=== PATIENT | male | born 1975 | race Caucasian/White ===

== ENCOUNTER 2018-01-04 23:45 | Emergency (ER) | payer OTHER ==
[~2018-01-04 23:45] MED LIST: NALOXONE HCL 2 MG/2 ML VIAL ONE
--- OUTSIDE RECORDS SUMMARY | 2018-01-04 23:47 | XMS REPORT | Continuity of Care Document ---
:1975 Author Organization Interface Problems Problem Status Onset Classification Date Comments Source Date Reported GASTROPARESIS Active 08/07/[address] Anxiety Resolved Problem 08/30/2016 [facility] Constipation Resolved Problem 08/30/2016 [facility] Gastroparesis Resolved Problem 08/30/2016 [facility] GERD (<span Resolved Problem 08/30/2016 [facility] ID="[id number]" Medical >Confirmed</span> Center ) Opiate use Resolved Problem 08/30/2016 [facility] Obesity Active Problem 08/30/2016 [facility] Pain Active Problem 08/30/2016 [facility] Medications Medication Details Route Status Patient Ordering Order Source Instructions Provider Date Buprenorphine 4 1 ea, SL, Active [facility] MG / Naloxone 1 Daily, # 017 Medical [facility] Oral Strip 30 ea, 0 Center [Suboxone] Refill(s) Allergies, Adverse Reactions, Alerts Substance Category Reaction Severity Reaction Status Date Comments Source type Reported NKDA Assertion Drug Active [facility] Immunizations Immunization Date Given Site Status Last Updated Comments Source Results Order Results Value Reference Date Interpretation Comments Source Name Range Vital Signs Vital Sign Value Date Comments Source Weight 106.364 08/27/2016 [facility] BMI Calculated 31.8 08/27/2016 [facility] Height 182.88 cm 08/27/2016 [facility] Systolic (mm Hg) 100 08/27/2016 [facility] Diastolic (mm Hg) 66 08/27/2016 [facility] Respitory Rate 16 08/27/2016 [facility] Heart Rate 94 08/27/2016 [facility] Encounters Location Location Encounter Encounter Reason Attending ADM DC Status Source Details Type Number For Provider Date Date [facility] [id number] Lizbet 08/27 08/28 [facility] Alan Morrellhi /2016 [facility] Center Procedures Procedure Code Date Perfomer Comments Source Colonoscopy [id number] [facility] Endoscopy of GI [id number] [facility]
--- OUTSIDE RECORDS SUMMARY | 2018-01-04 23:47 | XMS REPORT | Summary of Care ---
:1975 Author Organization [facility] Address [address], [place] [address]- Encounter HQ Gerryr_henrry(FIN) [id number] Date(s): 08/27/16 - 08/27/16 [facility] [address] [facility] [address] [place] [address] [phone] Discharge Disposition: Home or Self Care Attending Physician: Lizbet Khan MD Referring Physician: Lizbet Khan MD Vital Signs Most recent to oldest [Reference Range]: 1 Height 182.88 cm (08/27/16 11:36 AM) Blood Pressure [90-140/60-90 mmHg] 100/66 mmHg (08/27/16 11:36 AM) Respiratory Rate [14-20 BRMIN] 16 BRMIN (08/27/16 11:36 AM) Peripheral Pulse Rate [60-100 bpm] 94 bpm (08/27/16 11:36 AM) Weight 106.364 kg (08/27/16 11:36 AM) Body Mass Index 31.8 m2 (08/27/16 11:36 AM) Problem List Condition Effective Dates Status Health Status Informant Anxiety(Confirmed) Resolved Constipation(Confirmed) Resolved Gastroparesis(Confirmed) Resolved GERD (gastroesophageal reflux Resolved disease)(Confirmed) Opiate use(Confirmed) Resolved Obesity(Confirmed) Active Pain(Confirmed) Active Allergies, Adverse Reactions, Alerts Substance Reaction Severity Status NKDA Active Medications Suboxone 4 mg-1 mg sublingual film 1 ea, SL, Daily, # 30 ea, 0 Refill(s) Start Date: 08/27/16 Status: Ordered Results No data available for this section Immunizations No data available for this section Procedures Procedure Date Related Diagnosis Body Site Colonoscopy Endoscopy of GI tract Social History Social History Type Response Alcohol Current, Type Beer. Frequency: 1-2 times per month. Smoking Status Current every day smoker; Type: Cigarettes; Ready to change: No ; Concerns about tobacco use in household: No; Exposure to Tobacco Smoke None; Cigarette Smoking Last 365 Days No; Reg Smoking Cessation Counseling No Assessment and Plan No data available for this section
[2018-01-05] MEDS ORDERED: D5 0.45 NS 1,000 ML IV ONE (00:30)
[2018-01-05 00:54] LABS: Absolute Lymphocytes (CBC) 2.2 K/uL (0.7-4.9); Absolute Monocytes 0.6 K/uL (0.1-1.3); Absolute Neutrophil 4.3 K/uL (1.8-8.0); Basophils % 0.6 % (0-1.3); Hematocrit 39.9 % (39.6-49.0); Lymphocytes % 30.3 % (15.3-44.8); MCH 33.2 pg (27.0-35.0); MCV 96.6 fL (80-100); MPV 9.3 fL (7.6-11.3); Monocytes % 8.8 % (3.3-12.3); RBC Red Blood Cell Count 4.13 M/uL (4.33-5.43)
[2018-01-05 00:56] LABS: Protime INR 0.98
[2018-01-05 01:17] LABS: ALT/SGPT 23 U/L (12-78); AST/SGOT 17 U/L (15-37); Albumin 3.3 g/dL (3.4-5.0); Alkaline Phosphatase 81 U/L (45-117); BUN Blood Urea Nitrogen 6 mg/dL (7-18); Bicarbonate 31 mmol/L (21-32); Bilirubin Direct 0.1 mg/dL (0-0.2); Bilirubin Total 0.4 mg/dL (0.2-1.0); Glucose Level 97 mg/dL (74-106); Lipase 100 U/L (73-393); Potassium 3.4 mmol/L (3.5-5.1); Protein, Total 6.6 g/dL (6.4-8.2); Sodium Level 139 mmol/L (136-145)
[2018-01-05 01:57] LABS: Barbiturates NEGATIVE (NEGATIVE); Benzodiazepines POSITIVE (NEGATIVE); Cocaine NEGATIVE (NEGATIVE); METHAMPHETAM NEGATIVE (NEGATIVE); Methadone NEGATIVE (NEGATIVE); Opiates POSITIVE (NEGATIVE); Phencyclidine NEGATIVE (NEGATIVE); THC Cannibis POSITIVE (NEGATIVE)
[2018-01-05 02:04] LABS: Urine Blood NEGATIVE (NEG); Urine Glucose NEGATIVE (NEG); Urine Protein NEGATIVE (NEG); Urine Specific Gravity 1.015 (1.005-1.030)
--- NOTE | 2018-01-05 02:13 | EDPHYS ---
Physician Documentation [facility] Name: Waqar Bryant Age: 42 yrs Sex: Male : 1975 Arrival Date: 01/04/2018 Time: 23:51 Bed 24 Private MD: ED Physician Mike Welsh HPI: 01/05 00:09 This 42 yrs old Male presents to ER via EMS with complaints of AMS, abd pain. ma2 00:09 The patient presents with abdominal pain. The symptoms radiate to back. Associated ma2 signs and symptoms: Pertinent negatives: nausea and vomiting, blood in stools, diarrhea, fever, vomiting. The symptoms are described as constant. Modifying factors: the symptoms are aggravated by food. Severity of pain: At its worst the pain was moderate in the emergency department the pain is unchanged. hx of alcoholic pancreatitis has been having worsening of his abd pain during last 3 days, he took 4 of Somas and was bib ems with somnolence and AMS both parents at bedside, given narcan by EMS, GCS 15, AOx4, has moderate abd pain. no other symptosm . Historical: - Allergies: 00:05 No Known Allergies; mg2 - Home Meds: 00:05 suboxone [Active]; clonipine [Active]; Creon oral oral [Active]; mg2 - PMHx: 00:05 opiate addiction; Pancreatitis; mg2 - PSHx: 00:05 ercp; mg2 - Immunization history:: Flu vaccine status is unknown. - Social history:: Smoking status: Patient uses tobacco products, smokes one pack cigarettes per day. Patient/guardian denies using street drugs, IV drugs, Patient uses alcohol, on a daily basis. Patient/guardian denies using The patient lives with family. - Ebola Screening: : No symptoms or risks identified at this time. - Family history:: not pertinent. ROS: 00:09 Constitutional: Negative for fever, chills, and weight loss, : Negative for injury, ma2 bleeding, discharge, and swelling. 00:09 Abdomen/GI: Positive for abdominal pain, Negative for nausea and vomiting, vomiting, abdominal cramps, anorexia, rectal bleeding, acute changes. 00:09 All other systems are negative. Exam: 00:09 Constitutional: This is a well developed, well nourished patient who is awake, alert, ma2 and in no acute distress. Head/Face: Normocephalic, atraumatic. Chest/axilla: Normal chest wall appearance and motion. Nontender with no deformity. No lesions are appreciated. Cardiovascular: Regular rate and rhythm with a normal S1 and S2. No gallops, murmurs, or rubs. Normal PMI, no JVD. No pulse deficits. Respiratory: Lungs have equal breath sounds bilaterally, clear to auscultation and percussion. No rales, rhonchi or wheezes noted. No increased work of breathing, no retractions or nasal flaring. Abdomen/GI: Soft, non-tender, with normal bowel sounds. No distension or tympany. No guarding or rebound. No evidence of tenderness throughout. Vital Signs: 00:08 Pulse 70; Resp 18; Temp 98.4; Pulse Ox 98% on R/A; Weight 90.72 kg; Height 6 ft. 0 in. mg2 (182.88 cm); Pain 5/10; 01:06 BP 168 / 61; Pulse 61; Resp 18; Pulse Ox 100% on R/A; mg2 01:52 BP 169 / 68; Pulse 58; Resp 18; Pulse Ox 100% on R/A; mg2 02:24 BP 155 / 60; Pulse 60; Resp 18; Pulse Ox 100% on R/A; Pain 0/10; mg2 00:08 Body Mass Index 27.12 (90.72 kg, 182.88 cm) mg2 MDM: 01/04 23:57 Patient medically screened. nh2 01/05 00:09 Differential diagnosis: gastritis, gastroesophageal reflux disease, non-specific abd ma2 pain, pancreatitis. 02:09 Data reviewed: vital signs, nurses notes, lab test result(s). Counseling: I had a nh2 detailed discussion with the patient and/or guardian regarding: the historical points, exam findings, and any diagnostic results supporting the discharge/admit diagnosis, the presence of at least one elevated blood pressure reading (>120/80) during this emergency department visit. Response to treatment: the patient's symptoms have markedly improved after treatment. 01/05 00:06 Order name: Basic Metabolic Panel; Complete Time: 02:08 ma2 01/05 00:06 Order name: CBC with Diff; Complete Time: :07 ma2 01/05 00:06 Order name: Creatinine for Radiology; Complete Time: :01/05 00:06 Order name: Hepatic Function; Complete Time: 02:01/05 00:06 Order name: Lipase; Complete Time: 02:01/05 00:06 Order name: Acetaminophen; Complete Time: 02:01/05 00:06 Order name: ETOH Level; Complete Time: 02:01/05 00:06 Order name: PT-INR; Complete Time: 01:01/05 00:06 Order name: Ptt, Activated; Complete Time: 01:01/05 00:06 Order name: Salicylate; Complete Time: 02:01/05 00:06 Order name: Urine Drug Screen; Complete Time: 02:01/05 00:06 Order name: EKG; Complete Time: 00:08 01/05 00:59 Order name: Urine Dipstick--Ancillary (enter results); Complete Time: 02: 01/05 00:06 Order name: IV Saline Lock; Complete Time: 00:01/05 00:06 Order name: Labs collected and sent; Complete Time: 00:01/05 00:06 Order name: EKG - Nurse/Tech; Complete Time: 00:35 01/05 00:06 Order name: Urine Dipstick-Ancillary (obtain specimen); Complete Time: 01:07 Administered Medications: 00:35 Drug: D5-1/2 NS 1000 ml Route: IV; Rate: 100 ml/hr; Site: left antecubital; mg2 02:25 Follow up: Response: No adverse reaction; IV Status: Order to discontinue infusion mg2 Disposition: 01/05/18 02:12 Discharged to Home. Impression: Finding of opiate drug in blood. - Condition is Stable. - Medication Reconciliation Form, Thank You Letter, Antibiotic Education, Prescription Opioid Use form. - Follow up: Private Physician; When: Tomorrow; Reason: Continuance of care. - Problem is an acute exacerbation. - Symptoms have improved. Signatures: Dispatcher [employer] EDMS Mike Welsh MD MD nh2 Syed Cortés RN RN mg2 Corrections: (The following items were deleted from the chart) 02:12 01/05/2018 02:12 Discharged to Home. Impression: Finding of opiate drug in blood. mg2 Condition is Stable. Forms are Medication Reconciliation Form, Thank You Letter, Antibiotic Education, Prescription Opioid Use. Follow up: Private Physician; When: Tomorrow; Reason: Continuance of care. Problem is an acute exacerbation. Symptoms have improved. ma2
--- NOTE | 2018-01-05 02:13 | ER ---
Nurse's Notes [facility] Name: Waqar Bryant Age: 42 yrs Sex: Male : 1975 Arrival Date: 01/04/2018 Time: 23:51 Bed 24 Private MD: Diagnosis: Finding of opiate drug in blood Presentation: 01/05 00:00 Presenting complaint: EMS states: he had chronic pain/pancreatitis and his friend gave mg2 him soma pills and he took 5 of those \T\ 2000 tonight and he started shaking, incoherence, loss of balance. EMS gave him 4 mg of Narcan and he improved. no rashes, Shortness of breath. BGL was 101 mg/dl. Transition of care: patient was not received from another setting of care. Onset of symptoms was January 04, 2018. Risk Assessment: Do you want to hurt yourself or someone else? Patient reports no desire to harm self or others. Initial Sepsis Screen: Does the patient meet any 2 criteria? No. Patient's initial sepsis screen is negative. Does the patient have a suspected source of infection? No. Patient's initial sepsis screen is negative. Care prior to arrival: Medication(s) given: Narcan 4 mg and NSaline. 00:00 Method Of Arrival: EMS mg2 00:00 Acuity: AYANNA 3 mg2 Historical: - Allergies: 00:05 No Known Allergies; mg2 - Home Meds: 00:05 suboxone [Active]; clonipine [Active]; Creon oral oral [Active]; mg2 - PMHx: 00:05 opiate addiction; Pancreatitis; mg2 - PSHx: 00:05 ercp; mg2 - Immunization history:: Flu vaccine status is unknown. - Social history:: Smoking status: Patient uses tobacco products, smokes one pack cigarettes per day. Patient/guardian denies using street drugs, IV drugs, Patient uses alcohol, on a daily basis. Patient/guardian denies using The patient lives with family. - Ebola Screening: : No symptoms or risks identified at this time. - Family history:: not pertinent. Screenin:05 Abuse screen: Denies threats or abuse. Denies injuries from another. Nutritional mg2 screening: No deficits noted. Nutritional screening: No deficits noted. Tuberculosis screening: No symptoms or risk factors identified. Fall Risk IV access (20 points). Assessment: 00:35 General: Appears in no apparent distress. comfortable, Behavior is cooperative, mg2 listless. Pain: Complains of pain in chest Pain does not radiate. Pain currently is 5 out of 10 on a pain scale. Quality of pain is described as aching, Pain began gradually. Neuro: Level of Consciousness is awake, alert, obeys commands, Oriented to person, place, situation. Cardiovascular: Capillary refill < 3 seconds Patient's skin is warm and dry. Respiratory: Airway is patent Respiratory effort is even, unlabored, Respiratory pattern is regular, symmetrical. GI: Abdomen is flat, non-distended. GI: No signs and/or symptoms were reported involving the gastrointestinal system. : No signs and/or symptoms were reported regarding the genitourinary system. EENT: No signs and/or symptoms were reported regarding the EENT system. EENT: No signs and/or symptoms were reported regarding the EENT system. Derm: Skin is intact, Skin is pink, warm \T\ dry. normal. Musculoskeletal: Parent/caregiver report the patient having imbalance. 01:30 Reassessment: Patient appears in no apparent distress at this time. Patient and/or mg2 family updated on plan of care and expected duration. Pain level reassessed. Patient is alert, oriented x 3, equal unlabored respirations, skin warm/dry/pink. 02:24 Reassessment: Patient appears in no apparent distress at this time. Patient and/or mg2 family updated on plan of care and expected duration. Pain level reassessed. Vital Signs: 00:08 Pulse 70; Resp 18; Temp 98.4; Pulse Ox 98% on R/A; Weight 90.72 kg; Height 6 ft. 0 in. mg2 (182.88 cm); Pain 5/10; 01:06 BP 168 / 61; Pulse 61; Resp 18; Pulse Ox 100% on R/A; mg2 01:52 BP 169 / 68; Pulse 58; Resp 18; Pulse Ox 100% on R/A; mg2 02:24 BP 155 / 60; Pulse 60; Resp 18; Pulse Ox 100% on R/A; Pain 0/10; mg2 00:08 Body Mass Index 27.12 (90.72 kg, 182.88 cm) mg2 ED Course: 01/04 23:51 Patient arrived in ED. fc 23:57 Mike Welsh MD is Attending Physician. ma2 01/05 00:00 Syed Cortés, RN is Primary Nurse. mg2 00:03 Triage completed. mg2 00:08 Arm band placed on. EKG completed in triage. Results shown to MD. mg2 00:08 No provider procedures requiring assistance completed. Maintain EMS IV. Dressing mg2 intact. Good blood return noted. Site clean \T\ dry. Gauge \T\ site: 20 \T\ LAC. 01:05 IV discontinued, intact, bleeding controlled, No redness/swelling at site. Pressure mg2 dressing applied. 01:06 Patient has correct armband on for positive identification. Bed in low position. Call mg2 light in reach. Side rails up X2. Pulse ox on. NIBP on. Door closed. Warm blanket given. Pillow given. 01:06 Inserted saline lock: 20 gauge in right hand, using aseptic technique. mg2 01:07 Basic Metabolic Panel Sent. mg2 02:25 IV discontinued, intact, bleeding controlled, No redness/swelling at site. Pressure mg2 dressing applied. Administered Medications: 00:35 Drug: D5-1/2 NS 1000 ml Route: IV; Rate: 100 ml/hr; Site: left antecubital; mg2 02:25 Follow up: Response: No adverse reaction; IV Status: Order to discontinue infusion mg2 Outcome: 02:12 Discharge ordered by . daniel 02:25 Discharged to home ambulatory, with family. mg2 02:25 Condition: stable 02:25 Discharge instructions given to patient, family, Instructed on discharge instructions, follow up and referral plans. no drinking with medication, Demonstrated understanding of instructions, follow-up care. 02:26 Patient left the ED. mg2 Signatures: Michelle Jackson RN RN Mike Welsh MD MD ma2 Gardose, Michele, SEVERO RN mg2
--- NOTE | 2018-01-05 09:45 | EKG ---
Test Date: 2018-01-05 Test Time: 00:32:01 Direct Support Professional Home Health: MG MEASUREMENT RESULTS: Intervals: Rate: 72 FL: 144 QRSD: 146 QT: 434 QTc: 475 [place]: P: 54 FL: 144 QRS: 48 T: 49 INTERPRETIVE STATEMENTS: Normal sinus rhythm Right bundle branch block Abnormal ECG No previous ECG available for comparison Electronically Signed On 01-05-18 09:44:54 CDT by Jose Roberto Ren
== END 2018-01-05 02:26 | disposition home or self-care (01) ==
LOC: ER 23:45
DX: R78.1 Finding of opiate drug in blood (principal); F17.210 Nicotine dependence, cigarettes, uncomplicated
CPT/HCPCS: 36415; 80048; 80076; 80307; 80320; 80329; 81003; 83690; 85025; 85610; 85730; 93005; 96360; 96361; 99284

== ENCOUNTER 2021-02-24 07:59 | Day surgery (SDC) | payer OTHER ==
[2021-02-24] MEDS ORDERED: CEFAZOLIN/NS 1gm 1 GM/50 ML BAG ONE (08:14)
[2021-02-24] MEDS ORDERED: CELECOXIB 100 MG CAPSULE ONE (08:51)
[2021-02-24] MEDS ORDERED: ACETAMINOPHEN 500 MG TAB ONE (08:52)
[2021-02-24] MEDS ORDERED: ROCURONIUM 50 MG/5 ML VIAL IV ONE (09:32)
[2021-02-24] MEDS ORDERED: FENTANYL CITR 100 MCG/2 ML ONE ×2 (09:32→10:38)
[2021-02-24] MEDS ORDERED: propofoL 200 MG/20 ML VIAL IV ONE ×2 (09:32→10:35)
[2021-02-24] MEDS ORDERED: MIDAZOLAM HCL 2 MG/2 ML INJ ONE (09:32)
[2021-02-24] MEDS ORDERED: LIDOCAINE 1% MPF 5 ML VIAL ONE (09:32)
[2021-02-24] MEDS ORDERED: BUPIVACA 0.5%/EPI 0.0005%/PF 30 ML VIAL ONE (09:43)
[2021-02-24] MEDS: Ringers Lactate 1,000 ML IV ONE ×2 (09:45→10:01)
[2021-02-24] MEDS ORDERED: GLYCOPYRROLATE 0.2 MG/ML SYR ONE (10:09)
[2021-02-24] MEDS ORDERED: ONDANSETRON 4 MG/2 ML VIAL ONE ×2 (10:34→11:11)
[2021-02-24] MEDS ORDERED: KETOROLAC 30 MG/ML INJ ONE (10:34)
--- NOTE | 2021-02-24 10:48 | P.OP ---
Preoperative diagnosis: Posterior Neck Lipoma Postoperative diagnosis: Posterior Neck Lipoma Primary procedure: Wide Local Excision of Posterior Neck Lipoma Anesthesia: GETA + Local Estimated blood loss: <10cc Specimen: Fibrolipoma ~ 5cm x 3 cm x 3 cm Findings: Fibrolipoma Complications: None Transferred to: Recovery Room Condition: Good
[2021-02-24] MEDS: FENTANYL CITR 100 MCG/2 ML ONE ×2 (11:14→11:22)
[2021-02-24 11:25] VITALS: O2SAT 100
--- NOTE | 2021-02-24 11:37 | OP ---
Date of Procedure: 02/24/2021 Surgeon: Lamin Beckham MD, Preoperative Diagnosis: Posterior neck lipoma. Postoperative Diagnosis: Posterior neck lipoma. Procedure Performed: Wide local excision of posterior neck lipoma. Anesthesia: General endotracheal plus local with 0.5% Marcaine with epinephrine. Estimated Blood Loss: Less than 10 mL. Specimen: Fibrolipoma 5 cm x 3 cm x 3 cm. Findings: Fibrolipoma extending into the muscular plane posterior neck. Complications: None. Disposition: The patient was transferred to recovery room in good condition. Procedure In Detail: After informed consent was obtained, the patient was brought to the operating r oom, prepped and draped in the usual sterile fashion. After adequate anesthesia, a linear incision w as made in the posterior upper neck area near midline down to subcutaneous tissues. Electrocautery w as used to dissect circumferentially down through subcutaneous tissues and a fibrolipoma mass was alize reciated in the midline approximately 5 cm x 3 cm x 3 cm. This was circumferentially dissected using electrocautery and blunt dissection circumferentially around into the muscular plane, but not throug h the muscles, very superficial in the muscular plane. This was carefully dissected with a combinati on of blunt dissection as well as electrocautery. The mass was removed, sent off for pathologic exam ination. The area was copiously irrigated. Hemostasis was achieved with electrocautery. The area w as copiously irrigated once again, dried. No additional hemostatic maneuvers required. The deep jose nevin were then closed using interrupted 3-0 Vicryl suture and skin was closed with 4-0 Monocryl in run olga fashion. Dermabond placed over top. The patient tolerated the procedure well without evidence of complication and transferred to PACU in good condition. All counts were correct at the end of the case. TK/MODL Voice ID: [id number] Report ID: [id number]
[2021-02-24 12:00] VITALS: BP 119/70; TEMP 97.7
== END 2021-02-24 12:30 | disposition home or self-care (01) ==
LOC: OR 07:59
PROVIDERS: ATTEND Surgery
PROC: 0JB50ZZ Excision of Left Neck Subcutaneous Tissue and Fascia, Open Approach (ICD-10-PCS; principal; 2021-02-24 09:15)
DX: D17.0 Benign lipomatous neoplasm of skin and subcutaneous tissue of head, face and neck (principal); Z20.822 Contact with and (suspected) exposure to COVID-19
CPT/HCPCS: 88304; 11426; U0003; J2704 ×2; J2250; J3010 ×3; J0690; J7120; J2405 ×2

== ENCOUNTER 2021-08-15 08:03 | Day surgery (SDC) | payer OTHER ==
[2021-08-15] MEDS ORDERED: Ringers Lactate 1,000 ML IV ONE ×2 (08:15→11:39)
[2021-08-15] MEDS ORDERED: CEFAZOLIN SODIUM 1 GM/VIAL ONE (08:15)
[2021-08-15] MEDS ORDERED: LIDOCAINE 1% MPF 5 ML VIAL ONE (09:11)
[2021-08-15] MEDS ORDERED: FENTANYL CITR 100 MCG/2 ML ONE ×2 (09:11→11:24)
[2021-08-15] MEDS ORDERED: propofoL 200 MG/20 ML VIAL IV ONE (09:11)
[2021-08-15] MEDS ORDERED: MIDAZOLAM HCL 2 MG/2 ML INJ ONE (09:11)
[2021-08-15] MEDS ORDERED: ONDANSETRON 4 MG/2 ML VIAL ONE ×2 (09:12→12:08)
[2021-08-15] MEDS ORDERED: BUPIVACAINE 0.25% PF 10 ML VIAL ONE (09:43)
[2021-08-15] MEDS ORDERED: GLYCOPYRROLATE 0.2 MG/ML SYR ONE (10:30)
[2021-08-15] MEDS ORDERED: EPHEDRINE SULF 50 MG/ML VIAL ONE (10:32)
[2021-08-15] MEDS ORDERED: KETOROLAC 30 MG/ML INJ ONE (11:36)
--- NOTE | 2021-08-15 11:44 | P.OP ---
Preoperative diagnosis: LEFT Flank / Back complex lipomatous mass Postoperative diagnosis: LEFT Flank / Back complex lipomatous mass Primary procedure: Excisional biopsy of LEFT Flank / Back complex lipomatous mass Anesthesia: GETA + Local Estimated blood loss: <10cc Specimen: Complex lipomatous mass Findings: lipomatous mass with seroma abutting ribs Drain(s): EMERY drain (10mm round) Transferred to: Recovery Room Condition: Good
[2021-08-15] MEDS: MORPHINE 4 MG/ML SYR ONE ×4 (12:06→12:25)
[2021-08-15] MEDS ORDERED: MORPHINE 4 MG/ML SYR ONE (12:33)
[2021-08-15] MEDS: HYDROMORPHONE HCL 1 MG/ML INJ ONE ×7 (12:40→13:05)
[2021-08-15 12:56] VITALS: TEMP 97.1
[2021-08-15 14:01] VITALS: BP 126/48; O2SAT 100
--- NOTE | 2021-08-16 00:30 | OP ---
Date of Procedure: 08/15/2021 Surgeon: Lamin Beckham MD, Preoperative Diagnosis: Left flank/back complex lipomatous mass. Postoperative Diagnosis: Left flank/back complex lipomatous mass. Procedure Performed: Excisional biopsy of left flank/back complex lipomatous mass. Anesthesia: General endotracheal plus local with 0.25% Marcaine without epinephrine. Estimated Blood Loss: Less than 10 cc. Specimen: A complex lipomatous mass with seromatous capsule on deep margin. Findings: Lipomatous mass with seroma abutting the ribs on the deep aspect of the lipoma. Drains: 10 mm round EMERY drain. Condition: The patient transferred to recovery room in good condition. Procedure In Detail: After informed was consent obtained, the patient was brought to the operating r oom, prepped and draped in the usual sterile fashion. After adequate anesthesia was achieved, a line ar incision was made overlying approximately 10 cm mass of the left flank/back area down through subc utaneous tissues. I then circumferentially began dissecting around the lipomatous mass. As I approa ched the deep margin, a fluid-filled capsule was appreciated. This was bluntly dissected off the rib s posteriorly until seromatous fluid was emanating. This was suctioned out in its entirety at this p oint, allowing for continued dissection. I removed approximately 10 cm round lipomatous complex cyst ic mass off the ribs using a combination of sharp and blunt dissection as well as electrocautery. Th is was removed and sent off for pathologic examination. There were some perforating vessels emanatin g this way, which were suture ligated with a 3-0 nylon suture with good hemostasis at this point with minimal bleeding. The area was copiously irrigated at this point, and a 10 mm round EMERY suction was then placed into the cavity and brought out through the medial aspect. There was separate stab incis ion made for 15 blade. It was then secured to the skin using a 3-0 nylon suture and the deep dermal layer was then closed and reapproximated using a 3-0 Vicryl suture in an interrupted fashion with goo d approximation tissue. The skin was then closed with a 4-0 Monocryl in a running fashion. Dermabon d was placed over the top. The patient tolerated procedure well without evidence of complication, tr ansferred to PACU in good condition. All counts were correct at the end of the case. TK/MODL Voice ID: [id number] Report ID: [id number]
== END 2021-08-15 13:45 | disposition home or self-care (01) ==
LOC: OR 08:03
PROVIDERS: ATTEND Surgery
PROC: 0JB70ZZ Excision of Back Subcutaneous Tissue and Fascia, Open Approach (ICD-10-PCS; principal; 2021-08-15 10:00)
DX: D17.1 Benign lipomatous neoplasm of skin and subcutaneous tissue of trunk (principal); Z20.822 Contact with and (suspected) exposure to COVID-19
CPT/HCPCS: 88304; 11406; U0002; J2704; J2250; J3010 ×2; J1170 ×3; J7120 ×2; J2405 ×2; J0690; 88305

== ENCOUNTER 2021-08-16 16:23 | Emergency (ER) | payer OTHER ==
--- OUTSIDE RECORDS SUMMARY | 2021-08-16 16:25 | XMS REPORT | Continuity of Care Document ---
:1975 Author Organization [facility] t Address [address] [place] [address] Care Team Providers Name Role Phone CURT Attending Clinician Unavailable MD LACEY ELIAS Attending Clinician Unavailable SHERRIE Attending Clinician Unavailable DARYA Attending Clinician Unavailable Thierry GARCIA Attending Clinician Unavailable ABNER Attending Clinician Unavailable CURT Admitting Clinician Unavailable MD LACEY ELIAS Admitting Clinician Unavailable ABNER Admitting Clinician Unavailable Payers Payer Name Policy Type Policy Number Effective Date Expiration Date [facility] [id number] 2018 CHOICE 00:00:00 Problems This patient has no known problems. Allergies, Adverse Reactions, Alerts Allergy Allergy Status Severity Reaction(s) Onset Inactive Treating Comm ents Source Name Type Date Date Clinician NO KNOWN Drug Active NPI:183 ALLERGIE Class [id number] S Medications This patient has no known medications. Procedures This patient has no known procedures. Encounters Start End Encounter Admission Attending Care Care Encounter Source Date/Time Date/Time Type Type Clinicians Facility Department ID 2020-10-02 2020-10-02 [facility] [id number] [place] 00:00:00 00:00:00 [place] [address] 2020-09-04 2020-09-04 [facility] [id number] [place] 00:00:00 00:00:00 [place] [address] 2020-08-29 2020-08-29 [id number] [place] 00:[facility]:00 00:00:00 [place] [address] 2020-08-27 2020-08-27 [facility] [id number] [place] 00:00:00 00:00:00 [place] [address] 2020-08-14 2020-08-14 Outpatient CURT [facility] [id number] [place] 00:00:00 00:00:00 [facility] [address] [facility] 2020-08-14 2020-08-14 Outpatient CURT [facility] [id number] [place] 00:00:00 00:00:00 [facility] [address] [facility] 2020-06-08 2020-06-08 Outpatient Kelby BALDERAS [facility] [id number] NPI:[id number] 13:20:00 13:20:00 MASOUD [id number] 1 2020-06-08 2020-06-08 Outpatient Kelby [facility] [id number] NPI:183 13:20:00 13:20:00 [id number] 2020-04-22 2020-04-22 Outpatient CURT [facility] [id number] [place] 00:00:00 00:00:00 C[facility] [address] [facility] 2020-03-20 2020-03-20 Outpatient RADU LACKEY [facility] [id number] [place] 00:00:00 00:00:00 778 [address] [facility] 2019-08-09 2019-08-09 Outpatient Kelby GARCIA [facility] [id number] NPI:183 14:00:00 14:00:00 VIPIN [id number] 2019-08-09 2019-08-09 [facility] [id number] NPI:183 14:00:00 14:00:00 VIPIN [id number] 2019-06-08 2019-06-08 [id number] [place] 00:00:00 00:00:00 GAGANDEEP 794 [address] [facility] 2019-01-24 2019-01-24 [facility] [id number] [place] 00:00:00 00:00:00 GAGANDEEP 583 [facility] 2018-12-15 2018-12-15 [facility] [id number] [place] 00:00:00 00:00:00 GAGANDEEP 615 Method i Results Test Description Test Time Test Comments Results Result Comments Source SARS-CoV-2 (COVID-19) RNA [Presence] in Respiratory sp ecimen by 2020-08-27 23:03:28 IKER with probe detection Test Item Value Reference Range Interpretation Comme nts SARS-CoV-2 (COVID-19) RNA [Presence] in Respiratory Not detected No t-Detected specimen by IKER with probe detection (test code = 61919-0) Whether patient is employed in a healthcare setting (test code = 06375-0) Whether the patient has symptoms related to condition of interest (test code = 11438-2) Patient was hospitalized because of this condition (test code = 55133-6) Whether the patient was admitted to intensive care unit (ICU) for condition of interest (test code = 33746-4) Whether patient resides in a congregate care setting (test code = 85977-9)
--- NOTE | 2021-08-16 17:47 | ER ---
Nurse's Notes [facility] Name: Waqar Bryant Age: 46 yrs Sex: Male : 1975 Arrival Date: 08/16/2021 Time: 16:24 Bed 14 Private MD: Diagnosis: Encounter for attention to dressings, sutures and drains-kathleen drain Presentation: 08/16 16:38 Chief complaint: Patient states: Had lipoma removed from L flank yesterday and believes ss his drain may have dislodged because more drainage is leaking onto his bandages rather than the collection bulb. Coronavirus screen: Client denies travel out of the [place] in the last 14 days. Ebola Screen: Patient denies exposure to infectious person. Patient denies travel to an Ebola-affected area in the 21 days before illness onset. Initial Sepsis Screen: Does the patient meet any 2 criteria? No. Patient's initial sepsis screen is negative. Does the patient have a suspected source of infection? No. Patient's initial sepsis screen is negative. Risk Assessment: Do you want to hurt yourself or someone else? Patient reports no desire to harm self or others. Onset of symptoms was August 16, 2021. 16:38 Method Of Arrival: Ambulatory ss 16:38 Acuity: AYANNA 3 ss Historical: - Allergies: 16:40 No Known Allergies; ss - PMHx: 16:40 opiate addiction; Pancreatitis; ss - Immunization history:: Client reports receiving the 2nd dose of the Covid vaccine. - Social history:: Smoking status: Patient denies any tobacco usage or history of. - Family history:: not pertinent. Screenin:43 Abuse screen: Denies threats or abuse. Denies injuries from another. Nutritional ld1 screening: No deficits noted. Tuberculosis screening: No symptoms or risk factors identified. Fall Risk None identified. Assessment: 16:43 General: Appears in no apparent distress. comfortable, Behavior is calm, cooperative, ld1 appropriate for age. Pain: Complains of pain in right low back Pain does not radiate. Pain currently is 8 out of 10 on a pain scale. Quality of pain is described as aching. Neuro: Level of Consciousness is awake, alert, obeys commands, Oriented to person, place, time, situation. Cardiovascular: Capillary refill < 3 seconds Patient's skin is warm and dry. Rhythm is sinus rhythm. Respiratory: Airway is patent Respiratory effort is even, unlabored, Respiratory pattern is regular, symmetrical. GI: Abdomen is flat, non-distended. : No signs and/or symptoms were reported regarding the genitourinary system. EENT: No signs and/or symptoms were reported regarding the EENT system. Derm: No signs and/or symptoms reported regarding the dermatologic system. Musculoskeletal: No signs and/or symptoms reported regarding the musculoskeletal system. 17:43 Reassessment: Patient appears in no apparent distress at this time. Patient is alert, ld1 oriented x 3, equal unlabored respirations, skin warm/dry/pink. Patient denies pain at this time. Vital Signs: 16:38 BP 125 / 63; Pulse 89; Resp 16; Pulse Ox 97% on R/A; Height 6 ft. 1 in. (185.42 cm); ss Pain 6/10; 16:43 BP 125 / 63; Pulse 81; Resp 18; Temp 98.7(TE); Pulse Ox 98% on R/A; Weight 88.9 kg; ld1 Height 5 ft. 11 in. (180.34 cm); Pain 7/10; 17:43 BP 132 / 70; Pulse 76; Resp 18; Pulse Ox 98% on R/A; ld1 16:43 Body Mass Index 27.34 (88.90 kg, 180.34 cm) ld1 ED Course: 16:24 Patient arrived in ED. ds1 16:25 Jeovanny Childers MD is Attending Physician. [facility] 16:40 Triage completed. ss 16:40 Arm band placed on right wrist. ss 16:43 Mesha Trevino, SEVERO is Primary Nurse. ld1 16:43 Patient has correct armband on for positive identification. Placed in gown. Bed in low ld1 position. Call light in reach. Side rails up X2. ecommerce project manager on. Pulse ox on. NIBP on. Door closed. Noise minimized. Warm blanket given. 16:43 No provider procedures requiring assistance completed. ld1 17:23 Patient did not have IV access during this emergency room visit. Wound care: 4x4, abd ss pad and abd binder placed. 17:44 Lamin Beckham MD is Referral Physician. cindy Administered Medications: No medications were administered Outcome: 17:46 Discharge ordered by . cindy 17:50 Discharged to home ambulatory. ld1 17:50 Condition: stable 17:50 Discharge instructions given to patient, Instructed on discharge instructions, follow up and referral plans. Demonstrated understanding of instructions, follow-up care. 17:50 Patient left the ED. ld1 Signatures: Jeovanny Childers MD MD cha Sanford, Demi ds1 Renita Peter RN RN ss Mesha Trevino RN RN ld1
--- NOTE | 2021-08-16 17:47 | EDPHYS ---
Physician Documentation [facility] Name: Waqar Bryant Age: 46 yrs Sex: Male : 1975 Arrival Date: 08/16/2021 Time: 16:24 Bed 14 Private MD: JILLIAN Physician Jeovanny Childers HPI: 08/16 17:36 This 46 yrs old Male presents to ER via Ambulatory with complaints of Post cindy surgical Bleeding. 17:36 Patient presents to ED for recheck of: MASS REMOVED , WITH KATHLEEN , NOT DRAINING. The cindy affected area is on the left low back and left mid back. Progress: The patient reports excellent improvement in the affected area. There has been resolution, improvement, or non-development of any drainage, fever, pain, redness or swelling. The patient has not experienced similar symptoms in the past. Historical: - Allergies: 16:40 No Known Allergies; ss - PMHx: 16:40 opiate addiction; Pancreatitis; ss - Immunization history:: Client reports receiving the 2nd dose of the Covid vaccine. - Social history:: Smoking status: Patient denies any tobacco usage or history of. - Family history:: not pertinent. ROS: 17:36 Constitutional: Negative for fever, chills, and weight loss, Eyes: Negative for injury, cindy pain, redness, and discharge, ENT: Negative for injury, pain, and discharge, Neck: Negative for injury, pain, and swelling, Cardiovascular: Negative for chest pain, palpitations, and edema, Respiratory: Negative for shortness of breath, cough, wheezing, and pleuritic chest pain, Abdomen/GI: Negative for abdominal pain, nausea, vomiting, diarrhea, and constipation, : Negative for injury, bleeding, discharge, and swelling, MS/Extremity: Negative for injury and deformity, Neuro: Negative for headache, weakness, numbness, tingling, and seizure, Psych: Negative for depression, anxiety, suicide ideation, homicidal ideation, and hallucinations, Allergy/Immunology: Negative for hives, rash, and allergies, Endocrine: Negative for neck swelling, polydipsia, polyuria, polyphagia, and marked weight changes, Hematologic/Lymphatic: Negative for swollen nodes, abnormal bleeding, and unusual bruising. 17:36 Back: Positive for pain at rest, flank pain, on the left. 17:36 Skin: Positive for HEALING WOUND, WITH KATHLEEN , NOW DRAINING, WOUND WITHOUT SIGNS OF INFECTION. Exam: 17:36 Constitutional: This is a well developed, well nourished patient who is awake, alert, cindy and in no acute distress. Head/Face: Normocephalic, atraumatic. Eyes: Pupils equal round and reactive to light, extra-ocular motions intact. Lids and lashes normal. Conjunctiva and sclera are non-icteric and not injected. Cornea within normal limits. Periorbital areas with no swelling, redness, or edema. ENT: Nares patent. No nasal discharge, no septal abnormalities noted. Tympanic membranes are normal and external auditory canals are clear. Oropharynx with no redness, swelling, or masses, exudates, or evidence of obstruction, uvula midline. Mucous membranes moist. Neck: Trachea midline, no thyromegaly or masses palpated, and no cervical lymphadenopathy. Supple, full range of motion without nuchal rigidity, or vertebral point tenderness. No Meningismus. Chest/axilla: Normal chest wall appearance and motion. Nontender with no deformity. No lesions are appreciated. Cardiovascular: Regular rate and rhythm with a normal S1 and S2. No gallops, murmurs, or rubs. Normal PMI, no JVD. No pulse deficits. Respiratory: Lungs have equal breath sounds bilaterally, clear to auscultation and percussion. No rales, rhonchi or wheezes noted. No increased work of breathing, no retractions or nasal flaring. Abdomen/GI: Soft, non-tender, with normal bowel sounds. No distension or tympany. No guarding or rebound. No evidence of tenderness throughout. Male : Normal genitalia with no discharge or lesions. MS/ Extremity: Pulses equal, no cyanosis. Neurovascular intact. Full, normal range of motion. Neuro: Awake and alert, GCS 15, oriented to person, place, time, and situation. Cranial nerves II-XII grossly intact. Motor strength 5/5 in all extremities. Sensory grossly intact. Cerebellar exam normal. Normal gait. Psych: Awake, alert, with orientation to person, place and time. Behavior, mood, and affect are within normal limits. 17:36 Abdomen/GI: Inspection: abdomen appears normal, Bowel sounds: normal, Palpation: soft, Liver: no appreciated palpable abnormalities, Hernia: not appreciated. 17:36 Back: pain, that is mild, ROM is normal, normal spinal alignment noted, CVA tenderness, is absent. Vital Signs: 16:38 BP 125 / 63; Pulse 89; Resp 16; Pulse Ox 97% on R/A; Height 6 ft. 1 in. (185.42 cm); ss Pain 6/10; 16:43 BP 125 / 63; Pulse 81; Resp 18; Temp 98.7(TE); Pulse Ox 98% on R/A; Weight 88.9 kg; ld1 Height 5 ft. 11 in. (180.34 cm); Pain 7/10; 17:43 BP 132 / 70; Pulse 76; Resp 18; Pulse Ox 98% on R/A; ld1 16:43 Body Mass Index 27.34 (88.90 kg, 180.34 cm) ld1 MDM: 16:26 Patient medically screened. cindy 17:42 Data reviewed: vital signs, nurses notes. Data interpreted: monitor car operator: rate is 81 cindy beats/min, rhythm is regular. Counseling: I had a detailed discussion with the patient and/or guardian regarding: the historical points, exam findings, and any diagnostic results supporting the discharge/admit diagnosis, lab results, the need for outpatient follow up, for definitive care, a general surgeon. Physician consultation: Lamin Beckham MD and will see patient in office. 08/16 17:36 Order name: [facility]. Order: CLEAN AND DRESS, ABD BINDER; Complete Time: 17:43 cindy Administered Medications: No medications were administered Disposition Summary: 08/16/21 17:46 Discharge Ordered Location: Home cindy Problem: new cindy Symptoms: have improved cindy Condition: Stable cindy Diagnosis - Encounter for attention to dressings, sutures and drains - kathleen drain cindy Followup: cindy - With: Lamin Beckham MD - When: 1 - 2 days - Reason: Recheck today's complaints, Continuance of care, Re-evaluation by your physician Discharge Instructions: - Discharge Summary Sheet cindy - Sutures, Evette, or Adhesive Wound Closure cindy - Wound Care, Adult cindy - Sutures, Evette, or Adhesive Wound Closure, [id number] cindy Forms: - Medication Reconciliation Form cindy - Thank You Letter cindy - Antibiotic Education cindy - Prescription Opioid Use cindy Signatures: Jeovanny Childers MD MD cha Smirch, Shelby, RN RN ss
[2021-08-16 18:36] VITALS: TEMP 98.7; O2SAT 98
[2021-08-16 18:37] VITALS: BP 132/70
== END 2021-08-16 17:50 | disposition home or self-care (01) ==
LOC: ER 16:23
DX: Z48.00 Encounter for change or removal of nonsurgical wound dressing (principal)
CPT/HCPCS: 99284

== ENCOUNTER 2021-11-14 11:03 | Day surgery (SDC) | payer OTHER ==
[2021-11-11 10:20] LABS: SARS-CoV-2 Antigen Rapid Res Negative (Negative)
[2021-11-14] MEDS ORDERED: Ringers Lactate 1,000 ML IV ONE (12:00)
[2021-11-14] MEDS ORDERED: SUCCINYLCHOLINE 20 MG/ML (10 ML) IV ONE (13:01)
[2021-11-14] MEDS ORDERED: propofoL 200 MG/20 ML VIAL IV ONE ×2 (13:06→14:07)
[2021-11-14] MEDS ORDERED: LIDOCAINE 1% MPF 5 ML VIAL ONE (13:06)
[2021-11-14] MEDS ORDERED: GLYCOPYRROLATE 0.2 MG/ML SYR ONE (13:14)
--- NOTE | 2021-11-14 13:49 | ENDO RPT ---
[address], [address] EGD PROCEDURE REPORT EXAM DATE: 11/14/2021 PATIENT NAME: Waqar Bryant MR#: [id number] BIRTHDATE: 1975 ATTENDING: Lamin Beckham DR STATUS: outpatient OVEN OPERATOR AUTOMATIC: Sancho Badillo and Jennifer Lanier RN INDICATIONS: The patient is a 46 yr old Male here for an EGD due to mid epigastric abdominal pain PROCEDURE PERFORMED: EGD with biopsy for H. pylori MEDICATIONS: Per Anesthesia. TOPICAL ANESTHETIC: none CONSENT: The patient understands the risks and benefits of the procedure and understands that these risks include, but are not limited to: sedation, allergic reaction, infection, perforation and/or bleeding. Alternative means of evaluation and treatment include, among others: physical exam, x-rays, and/or surgical intervention. The patient elects to proceed with this endoscopic procedure. DESCRIPTION OF PROCEDURE: During intra-op preparation period all mechanical medical equipment was checked for proper function. Hand hygiene and appropriate measures for infection prevention was taken. Procedure, possible complications, and alternatives including but not limited to the possibility of bleeding, perforation, tear, infection, sepsis, need for surgery, need for blood transfusion, and anesthesia related complications were explained to the patient. After the risks, benefits and alternatives of the procedure were thoroughly explained, Informed consent was verified, confirmed and timeout was successfully executed by the treatment team. The patient was placed in the left lateral position. The patient was anesthetized with topical anesthesia. Through the anesthetized oropharyngeal area, the scope was passed without any difficulty. The [id number] ([id number]) endoscope was introduced through the mouth and advanced to the second portion of the duodenum. Retroflexed views revealed no abnormalities. The gastroscope was then slowly withdrawn and removed. Duodenitis was found in the bulb and descending duodenum. Multiple biopsies were obtained and sent to pathology. Moderate gastritis was found in the body and the antrum of the stomach. A biopsy for H. pylori was taken. Multiple biopsies were obtained and sent to pathology. LA Class A esophagitis was found in the upper esophagus. With standard forceps, a biopsy was obtained and sent to pathology. ADVERSE EVENTS: There were no complications. IMPRESSIONS: 1. Duodenitis was found in the bulb and descending duodenum 2. Moderate gastritis was found in the body and the antrum of the stomach 3. LA Class A esophagitis was found in the upper esophagus RECOMMENDATIONS: 1. acid suppression therapy 2. anti-reflux regimen 3. await biopsy results 4. follow-up: office 2 week(s) 5. avoid NSAIDS 6. follow-up of helicobacter pylori status, treat if indicated REPEAT EXAM: Lamin Beckham DR eSigned: Lamin Beckham DR 11/14/2021 1:49 PM cc: CPT CODES: ICD9 CODES: PATIENT NAME: Waqar Bryant MR#: [id number]
--- NOTE | 2021-11-14 13:51 | ENDO RPT ---
[address], [address] COLONOSCOPY PROCEDURE REPORT EXAM DATE: 11/14/2021 PATIENT NAME: Waqar Bryant MR #: [id number] BIRTHDATE: 1975 ATTENDING: Lamin Beckham DR STATUS: outpatient SUPERVISOR ELECTRONICS PROCESSING: Jennifer Lanier RN and Sancho Mireles [facility] INDICATIONS: The patient is a 46 yr old Male here for a colonoscopy due to rectal bleeding PROCEDURE PERFORMED: Screening Colonoscopy and Colonoscopy MEDICATIONS: Per Anesthesia. ESTIMATED BLOOD LOSS: None CONSENT: The patient understands the risks and benefits of the procedure and understands that these risks include, but are not limited to: sedation, allergic reaction, infection, perforation and/or bleeding. Alternative means of evaluation and treatment include, among others: physical exam, x-rays, and/or surgical intervention. The patient elects to proceed with this endoscopic procedure. DESCRIPTION OF PROCEDURE: During intra-op preparation period all mechanical medical equipment was checked for proper function. Hand hygiene and appropriate measures for infection prevention was taken. Procedure, possible complications, alternatives including, but not limited to possibility of bleeding, perforation, tear, infection, sepsis, need for surgery, need for blood transfusion, were explained to the patient. After the risks, benefits and alternatives of the procedure were thoroughly explained, Informed consent was verified, confirmed and timeout was successfully executed by the treatment team. The patient was placed in the left lateral position. A digital rectal exam was performed and revealed external hemorrhoids and A digital rectal exam was performed and revealed internal hemorrhoids. After appropriate level of anesthesia, the scope was passed. The [id number] ([id number]) endoscope was introduced through the anus and advanced to the cecum, which was identified by both the appendix and ileocecal valve. The quality of the prep was fair. The instrument was then slowly withdrawn as the colon was fully examined. Scope withdrawal time was 8 minutes. COLON FINDINGS: Large internal and external hemorrhoids were found. The colon mucosa was otherwise normal. Retroflexed views revealed no abnormalities. The scope was then completely withdrawn from the patient and the procedure terminated. ADVERSE EVENTS: There were no complications. IMPRESSIONS: 1. Large internal and external hemorrhoids 2. The colon mucosa was otherwise normal RECOMMENDATIONS: 1. avoid NSAIDS for 2 weeks 2. fiber rich diet 3. follow-up: office 2 week(s) 4. Monitor for any evidence of rectal bleeding. 5. hemorrhoidal hygiene 6. increase dietary water 7. surgery RECALL: Lamin Beckham DR eSigned: Lamin Beckham DR 11/14/2021 1:51 PM cc: CPT CODES: ICD9 CODES: PATIENT NAME: Waqar Bryant MR#: [id number]
[2021-11-14 15:34] VITALS: O2SAT 100
[2021-11-14 15:35] VITALS: TEMP 97.9
[2021-11-14 15:42] VITALS: BP 109/66
== END 2021-11-14 14:33 | disposition home or self-care (01) ==
LOC: PRE 11:03
PROVIDERS: ATTEND Surgery
PROC: 0DJD8ZZ Inspection of Lower Intestinal Tract, Via Natural or Artificial Opening Endoscopic (ICD-10-PCS; principal; 2021-11-14 12:00)
DX: K62.5 Hemorrhage of anus and rectum (principal); K64.8 Other hemorrhoids; K64.4 Residual hemorrhoidal skin tags; Z20.822 Contact with and (suspected) exposure to COVID-19
CPT/HCPCS: 36415; 88312; 88305; 87811; 45378; J2704 ×2; J0330; J7120